=== PATIENT | male | born 1945 | race African-American/Black ===

== ENCOUNTER 2017-08-30 19:25 | Emergency (ER) | payer MEDICARE, MEDICAID ==
[~2017-08-30] VITALS: Ht 190.5 cm; Wt 88.2 kg
[~2017-08-30 19:25] MED LIST: AMLODIPINE5 MG PO; BACTRIM DS1 TAB PO; CIPRO500 MG OR; DIPHENHYDRAM50 M2 PO; ROBITUSS12 OR; TYLENOL # 31 TA1 PO
[2017-08-30] MEDS ORDERED: PROSTATE MED (19:36)
[2017-08-30 20:47] LABS: HEMATOCRIT 43.5 % (39.0-50.0); HEMOGLOBIN 14.7 g/dl (14.0-18.0); IMMATURE GRANULOCYTES 0.2 % (0.0-1.0); MEAN CELL VOLUME 91.6 fL CALC (80.0-100.0); MEAN CORPUSCULAR HGB 30.9 pG CALC (26.0-32.0); MEAN CORPUSCULAR HGB CONC 33.8 g/L CALC (32.0-36.0); NEUT# 2.83 thou/uL (1.82-7.42); RED BLOOD COUNT 4.75 mill/uL (4.70-6.10); RED CELL DISTRI WIDTH 12.6 % (11.5-15.5)
[2017-08-30 20:48] LABS: URINE BILIRUBIN - DIPSTICK NEGATIVE (NEGATIVE); URINE BLOOD DIPSTICK LARGE (NEGATIVE); URINE CLARITY CLEAR; URINE COLOR YELLOW; URINE GLUCOSE - DIPSTICK NEGATIVE (NEGATIVE); URINE KETONE NEGATIVE (NEGATIVE); URINE LEUK ESTERASE NEGATIVE (NEGATIVE); URINE NITRITE - DIPSTICK NEGATIVE (Negative); URINE PROTEIN - DIPSTICK NEGATIVE (NEG-TRACE); URINE SPECIFIC GRAVITY <=1.005; URINE UROBILINOGEN - DIPSTICK 0.2 E.U./dL (0.2)
[2017-08-30 20:55] LABS: ALKALINE PHOSPHATASE 64 u/l (38-126); ANION GAP 14 (6-22 (CALC)); BILIRUBIN, TOTAL 0.6 mg/dL (0.0-1.4); BUN 13 mg/dL (8-23); BUN/CREATININE RATIO 12 (12-20 (CALC)); CALCIUM 9.2 mg/dL (8.4-10.2); CARBON DIOXIDE 22 mmol/l (22-30); CHLORIDE 104 mmol/l (95-108); CREATININE 1.1 mg/dL (0.7-1.3); GFR > 60 ML/MIN (>=60 (CALC)); GFR FOR AFR.AMER. > 60 ML/MIN (>=60 (CALC)); GLUCOSE 142 mg/dL (82-115); POTASSIUM 4.1 mmol/l (3.5-5.1); SGOT/AST 20 u/l (19-48); SGPT/ALT 31 u/l (11-66); SODIUM 136 mmol/l (137-146)
[2017-08-30 20:58] LABS: URINE WBC 0-2 WBC/hpf (0-5)
[2017-08-30] MEDS ORDERED: TAMSULOSIN0.4 MG PO (22:04)
[2017-08-30 22:20] VITALS: BP 134/77
== END 2017-08-30 22:31 | disposition home or self-care (01) ==
LOC: ED 19:25
PROVIDERS: Emergency Medicine
PROC: 0T9B70Z Drainage of Bladder with Drainage Device, Via Natural or Artificial Opening (ICD-10-PCS; principal; 2017-08-30)
DX: N40.1 Benign prostatic hyperplasia with lower urinary tract symptoms (principal); R33.8 Other retention of urine; I10 Essential (primary) hypertension; Z21 Asymptomatic human immunodeficiency virus [HIV] infection status
CPT/HCPCS: Q9967

== ENCOUNTER 2018-03-25 12:54 | Emergency (ER) | payer MEDICARE, MEDICAID ==
[~2018-03-25] VITALS: Ht 190.5 cm; Wt 85.6 kg
[~2018-03-25 12:54] MED LIST changes: +PROSTATE MED; +TAMSULOSIN0.4 MG PO
[2018-03-25] MEDS ORDERED: PENICILLN VK500 MG PO (13:25)
[2018-03-25 13:30] VITALS: BP 127/81
[2018-03-25] MEDS ORDERED: FINASTERIDE5 MG PO (13:34)
[2018-03-25] MEDS ORDERED: TAMSULOSIN HCL0.4 MG PO (13:34)
[2018-03-25] MEDS ORDERED: VASOTEC5 MG PO (13:35)
== END 2018-03-25 13:30 | disposition home or self-care (01) ==
LOC: ED 12:54
DX: K08.89 Other specified disorders of teeth and supporting structures (principal); R68.84 Jaw pain; R50.9 Fever, unspecified

== ENCOUNTER 2018-03-26 17:37 | Observation (INO) | payer MEDICARE, MEDICAID ==
[~2018-03-26] VITALS: Ht 190.5 cm; Wt 83.4 kg
[~2018-03-26 17:37] MED LIST changes: +FINASTERIDE5 MG PO; +PENICILLN VK500 MG PO; +TAMSULOSIN HCL0.4 MG PO; +VASOTEC5 MG PO
[2018-03-26 18:23] LABS: HEMATOCRIT 46.9 % (39.0-50.0); HEMOGLOBIN 15.6 g/dl (14.0-18.0); IMMATURE GRANULOCYTES 0.3 % (0.0-1.0); MEAN CELL VOLUME 91.1 fL CALC (80.0-100.0); MEAN CORPUSCULAR HGB 30.3 pG CALC (26.0-32.0); MEAN CORPUSCULAR HGB CONC 33.3 g/L CALC (32.0-36.0); NEUT# 3.53 thou/uL (1.82-7.42); RED BLOOD COUNT 5.15 mill/uL (4.70-6.10); RED CELL DISTRI WIDTH 12.7 % (11.5-15.5)
[2018-03-26 18:54] LABS: ALBUMIN 4.2 g/dL (3.2-5.0); ALKALINE PHOSPHATASE 49 u/l (38-126); ANION GAP 17 (6-22 (CALC)); BILIRUBIN, TOTAL 0.7 mg/dL (0.0-1.4); BUN 14 mg/dL (8-23); BUN/CREATININE RATIO 12 (12-20 (CALC)); CARBON DIOXIDE 25 mmol/l (22-30); CHLORIDE 97 mmol/l (95-108); CREATININE 1.2 mg/dL (0.7-1.3); GFR 60 ML/MIN (>=60 (CALC)); GFR FOR AFR.AMER. > 60 ML/MIN (>=60 (CALC)); LIPASE 270 u/l (23-300); POTASSIUM 3.9 mmol/l (3.5-5.1); SGOT/AST 27 u/l (19-48); SGPT/ALT 33 u/l (11-66); SODIUM 135 mmol/l (137-146); TOTAL PROTEIN 8.1 g/dL (6.3-8.2)
[2018-03-26 19:14] LABS: URINE BILIRUBIN - DIPSTICK NEGATIVE (NEGATIVE); URINE BLOOD DIPSTICK TRACE-INTACT (NEGATIVE); URINE CLARITY CLEAR; URINE COLOR YELLOW; URINE GLUCOSE - DIPSTICK NEGATIVE (NEGATIVE); URINE KETONE NEGATIVE (NEGATIVE); URINE LEUK ESTERASE NEGATIVE (NEGATIVE); URINE NITRITE - DIPSTICK NEGATIVE (Negative); URINE PH 5.5 (4.5-8.0); URINE PROTEIN - DIPSTICK NEGATIVE (NEG-TRACE); URINE SPECIFIC GRAVITY <=1.005; URINE UROBILINOGEN - DIPSTICK 0.2 E.U./dL (0.2)
[2018-03-26 19:55] VITALS: BP 134/78
[2018-03-26 21:55] VITALS: BP 134/78
[2018-03-27 04:30] VITALS: BP 153/87
[2018-03-27 04:48] LABS: HEMATOCRIT 47.5 % (39.0-50.0); HEMOGLOBIN 15.5 g/dl (14.0-18.0); IMMATURE GRANULOCYTES 0.2 % (0.0-1.0); MEAN CELL VOLUME 91.9 fL CALC (80.0-100.0); MEAN CORPUSCULAR HGB CONC 32.6 g/L CALC (32.0-36.0); NEUT# 3.15 thou/uL (1.82-7.42); RED BLOOD COUNT 5.17 mill/uL (4.70-6.10); RED CELL DISTRI WIDTH 12.7 % (11.5-15.5)
[2018-03-27 05:12] LABS: ANION GAP 16 (6-22 (CALC)); BUN 13 mg/dL (8-23); BUN/CREATININE RATIO 12 (12-20 (CALC)); CARBON DIOXIDE 24 mmol/l (22-30); CHLORIDE 105 mmol/l (95-108); GFR > 60 ML/MIN (>=60 (CALC)); GFR FOR AFR.AMER. > 60 ML/MIN (>=60 (CALC)); SODIUM 140 mmol/l (137-146)
[2018-03-27 08:21] VITALS: BP 140/81
[2018-03-27 14:59] VITALS: BP 141/82
[2018-03-27 19:10] VITALS: BP 125/73
[2018-03-28 04:05] VITALS: BP 152/84
[2018-03-28 05:20] LABS: BASO% 1 % (0-3); EOS% 1 % (0-8); HEMATOCRIT 41.9 % (39.0-50.0); HEMOGLOBIN 13.8 g/dl (14.0-18.0); IMMATURE GRANULOCYTES 0.4 % (0.0-1.0); LYMPH% 37 % (15-41); MEAN CELL VOLUME 90.7 fL CALC (80.0-100.0); MEAN CORPUSCULAR HGB 29.9 pG CALC (26.0-32.0); MEAN CORPUSCULAR HGB CONC 32.9 g/L CALC (32.0-36.0); MONO% 13 % (2-13); NEUT# 2.56 thou/uL (1.82-7.42); PLATELET COUNT 153 thou/uL (130-400); RED BLOOD COUNT 4.62 mill/uL (4.70-6.10); RED CELL DISTRI WIDTH 12.8 % (11.5-15.5)
[2018-03-28 05:34] LABS: ANION GAP 14 (6-22 (CALC)); BUN 11 mg/dL (8-23); BUN/CREATININE RATIO 11 (12-20 (CALC)); CARBON DIOXIDE 25 mmol/l (22-30); CHLORIDE 103 mmol/l (95-108); GFR > 60 ML/MIN (>=60 (CALC)); GFR FOR AFR.AMER. > 60 ML/MIN (>=60 (CALC)); POTASSIUM 3.9 mmol/l (3.5-5.1); SODIUM 138 mmol/l (137-146)
[2018-03-28 05:44] LABS: MANUAL DIFFERENTIAL YES; NEUT% 100 % (42-76)
[2018-03-28 08:04] VITALS: BP 132/85
[2018-03-28 09:10] VITALS: BP 132/85
[2018-03-28] MEDS ORDERED: AUGMENTIN875TAB PO (11:05)
== END 2018-03-28 15:17 | disposition home or self-care (01) ==
LOC: ED 17:37 → ED-I 21:08 → ED 21:19 → MS2 21:20
PROVIDERS: Family Medicine; ADMIT Internal Medicine; ATTEND Internal Medicine
DX: L03.211 Cellulitis of face (principal); K04.7 Periapical abscess without sinus; I10 Essential (primary) hypertension; N40.0 Benign prostatic hyperplasia without lower urinary tract symptoms; Z85.46 Personal history of malignant neoplasm of prostate
CPT/HCPCS: Q9967

== ENCOUNTER 2022-02-25 07:28 | Day surgery (SDC) | payer MEDICARE, MEDICAID ==
[~2022-02-25] VITALS: Ht 188 cm; Wt 87.1 kg
[~2022-02-25 07:28] MED LIST changes: +AUGMENTIN875TAB PO; +BP; +ENALAPRIL5 MG PO; +MUSCLE RELAXER; +PAIN MED; +PROSTATE
[2022-02-25] MEDS ORDERED: PERCOCET 5/325M1 TAB PO (09:40)
[2022-02-25 11:51] VITALS: BP 145/94
[2022-02-25] MEDS ORDERED: PERCOCET 5/321 COMBO PO (12:39)
== END 2022-02-25 11:07 | disposition home or self-care (01) ==
LOC: ORM 07:28
PROVIDERS: ATTEND Surgery
PROC: 0WQF0ZZ Repair Abdominal Wall, Open Approach (ICD-10-PCS; principal; 2022-02-25)
DX: K43.9 Ventral hernia without obstruction or gangrene (principal); I10 Essential (primary) hypertension
CPT/HCPCS: J0131

== ENCOUNTER 2022-05-21 09:09 | Emergency (ER) | payer MEDICARE, MEDICAID ==
[2022-05-21] VITALS (12 sets, daily range): BP systolic 109–150; BP diastolic 73–99
[~2022-05-21] VITALS: Ht 188 cm; Wt 86.3 kg
[~2022-05-21 09:09] MED LIST changes: +PERCOCET 5/321 COMBO PO; +PERCOCET 5/325M1 TAB PO
[2022-05-21] MEDS ORDERED: FINASTERIDE5 MG PO (09:24)
[2022-05-21 09:45] LABS: HEMOGLOBIN 15.6 g/dl (14.0-18.0); IMMATURE GRANULOCYTES 0.3 % (0.0-5.0); MEAN CELL VOLUME 95.5 fL CALC (80.0-100.0); MEAN CORPUSCULAR HGB 30.7 pG CALC (26.0-32.0); MEAN CORPUSCULAR HGB CONC 32.2 g/dL CAL (32.0-36.0); NEUT# 5.97 thou/uL (1.82-7.42); RED BLOOD COUNT 5.08 mill/uL (4.70-6.10); RED CELL DISTRI WIDTH 12.7 % (11.5-15.5)
[2022-05-21 09:46] LABS: HEMATOCRIT 48.5 % (39.0-50.0)
[2022-05-21 10:05] LABS: ALBUMIN 4.2 g/dL (3.2-5.0); ALKALINE PHOSPHATASE 66 u/l (38-126); ANION GAP 12 (6-22 (CALC)); BILIRUBIN, TOTAL 0.5 mg/dL (0.0-1.4); BUN 9 mg/dL (8-23); BUN/CREATININE RATIO 7 (12-20 (CALC)); CARBON DIOXIDE 26 mmol/l (22-30); CHLORIDE 102 mmol/l (95-108); CREATININE 1.2 mg/dL (0.7-1.3); GFR FOR AFR.AMER. > 60 ML/MIN (>=60 (CALC)); GFR OTHER RACES 59 ML/MIN (>=60 (CALC)); SGOT/AST 22 u/l (19-48); SODIUM 136 mmol/l (137-146); TOTAL PROTEIN 8.2 g/dL (6.3-8.2)
[2022-05-21] MEDS ORDERED: BACTRIM DS1 TAB PO (12:20)
[2022-05-21] MEDS ORDERED: OMNICEF300 MG PO (12:20)
== END 2022-05-21 12:45 | disposition home or self-care (01) ==
LOC: ED 09:09
PROVIDERS: Family Medicine
DX: N49.2 Inflammatory disorders of scrotum (principal); I10 Essential (primary) hypertension
CPT/HCPCS: Q9967

== ENCOUNTER 2023-02-11 06:34 | Day surgery (SDC) | payer MEDICARE, MEDICAID ==
[~2023-02-11 06:34] MED LIST changes: +ALEVE220 M1 PO; +BUDESONID1 IN; +OMNICEF300 MG PO
[2023-02-11 08:22] VITALS: BP 135/85
== END 2023-02-11 08:35 | disposition home or self-care (01) ==
LOC: ORM 06:34
PROVIDERS: ATTEND Urology
PROC: 0VB03ZX Excision of Prostate, Percutaneous Approach, Diagnostic (ICD-10-PCS; principal; 2023-02-11)
DX: R97.20 Elevated prostate specific antigen [PSA] (principal); N40.1 Benign prostatic hyperplasia with lower urinary tract symptoms; N13.8 Other obstructive and reflux uropathy; R33.8 Other retention of urine; J44.9 Chronic obstructive pulmonary disease, unspecified; I10 Essential (primary) hypertension; Z21 Asymptomatic human immunodeficiency virus [HIV] infection status
CPT/HCPCS: J1956

== ENCOUNTER 2023-05-23 13:00 | Emergency (ER) | payer MEDICARE, MEDICAID ==
[~2023-05-23] VITALS: Ht 188 cm; Wt 81.6 kg
[2023-05-23 13:06] VITALS: BP 135/63
[2023-05-23 13:18] VITALS: BP 120/68
[2023-05-23 13:45] VITALS: BP 114/70
[2023-05-23 13:46] LABS: BASO% 0.2 % (0-3); EOS% 1.8 % (0-8); IMMATURE GRANULOCYTES 0.4 % (0.0-5.0); LYMPH% 28.7 % (15-41); MEAN CORPUSCULAR HGB 32.1 pG CALC (26.0-32.0); MEAN CORPUSCULAR HGB CONC 26.3 g/dL CAL (32.0-36.0); MONO% 12.2 % (2-13); NEUT# 4.79 thou/uL (1.82-7.42); NEUT% 56.7 % (42-76); RED BLOOD COUNT 4.67 mill/uL (4.70-6.10); RED CELL DISTRI WIDTH 13.1 % (11.5-15.5)
[2023-05-23 13:47] LABS: HEMATOCRIT 57.1 % (39.0-50.0); MEAN CELL VOLUME 122.3 fL CALC (80.0-100.0)
[2023-05-23 13:58] LABS: ALBUMIN 4.1 g/dL (3.2-5.0); BILIRUBIN, TOTAL 0.6 mg/dL (0.2-1.3); CREATININE 1.6 mg/dL (0.7-1.3); POTASSIUM 4.4 mmol/l (3.5-5.1); TOTAL PROTEIN 8.3 g/dL (6.3-8.2)
[2023-05-23 14:00] VITALS: BP 114/74
[2023-05-23 14:15] VITALS: BP 114/71
[2023-05-23] MEDS ORDERED: DOXY-CAPS100 MG PO (15:43)
[2023-05-23] MEDS ORDERED: OMNICEF300 M1 PO (15:43)
[2023-05-23 16:03] VITALS: BP 114/71
== END 2023-05-23 16:04 | disposition home or self-care (01) ==
LOC: ED 13:00
PROVIDERS: Family Medicine
PROC: 0H9AXZZ Drainage of Inguinal Skin, External Approach (ICD-10-PCS; principal; 2023-05-23)
DX: L02.214 Cutaneous abscess of groin (principal); I10 Essential (primary) hypertension
CPT/HCPCS: Q9967

== ENCOUNTER 2023-05-24 07:48 | Observation (INO) | payer MEDICARE, MEDICAID ==
[~2023-05-24] VITALS: Ht 185.4 cm; Wt 83.8 kg
[2023-05-24] VITALS (12 sets, daily range): BP systolic 99–137; BP diastolic 59–84
[~2023-05-24 07:48] MED LIST changes: +DOXY-CAPS100 MG PO; +OMNICEF300 M1 PO
[2023-05-24 09:09] LABS: BASO% 0.2 % (0-3); EOS% 1.7 % (0-8); HEMOGLOBIN 14.5 g/dl (14.0-18.0); IMMATURE GRANULOCYTES 0.6 % (0.0-5.0); LYMPH% 23.4 % (15-41); MEAN CORPUSCULAR HGB 29.9 pG CALC (26.0-32.0); NEUT# 5.8 thou/uL (1.82-7.42); NEUT% 65.1 % (42-76); RED BLOOD COUNT 4.85 mill/uL (4.70-6.10)
[2023-05-24 09:12] LABS: HEMATOCRIT 45.3 % (39.0-50.0); MEAN CELL VOLUME 93.4 fL CALC (80.0-100.0)
[2023-05-24 09:25] LABS: ALBUMIN 3.9 g/dL (3.2-5.0); BILIRUBIN, TOTAL 0.5 mg/dL (0.2-1.3); CREATININE 1.5 mg/dL (0.7-1.3); POTASSIUM 3.9 mmol/l (3.5-5.1); TOTAL PROTEIN 8.1 g/dL (6.3-8.2)
[2023-05-24 11:24] LABS: URINE COLOR YELLOW
[2023-05-24 11:25] LABS: URINE BILIRUBIN - DIPSTICK NEGATIVE (NEGATIVE); URINE BLOOD DIPSTICK NEGATIVE (NEGATIVE); URINE GLUCOSE - DIPSTICK NEGATIVE (NEGATIVE); URINE KETONE Negative (NEGATIVE); URINE LEUK ESTERASE NEGATIVE (NEGATIVE); URINE NITRITE - DIPSTICK NEGATIVE (Negative); URINE PH 7.5 (4.5-8.0); URINE PROTEIN - DIPSTICK Trace mg/dL (NEG-TRACE); URINE SPECIFIC GRAVITY 1.015
[2023-05-25 04:30] VITALS: BP 122/72
[2023-05-25 06:19] VITALS: BP 110/74
[2023-05-25 06:51] VITALS: BP 110/74
[2023-05-25 09:09] LABS: HEMATOCRIT 41.9 % (39.0-50.0); HEMOGLOBIN 13.3 g/dl (14.0-18.0); MEAN CELL VOLUME 93.9 fL CALC (80.0-100.0); MEAN CORPUSCULAR HGB 29.8 pG CALC (26.0-32.0); MEAN CORPUSCULAR HGB CONC 31.7 g/dL CAL (32.0-36.0); RED BLOOD COUNT 4.46 mill/uL (4.70-6.10); RED CELL DISTRI WIDTH 12.9 % (11.5-15.5)
[2023-05-25 09:27] LABS: ALKALINE PHOSPHATASE 44 u/l (38-126); ANION GAP 10 (6-22 (CALC)); BILIRUBIN, TOTAL 0.6 mg/dL (0.2-1.3); BUN 10 mg/dL (8-23); BUN/CREATININE RATIO 10 (12-20 (CALC)); CARBON DIOXIDE 21 mmol/l (22-30); CHLORIDE 108 mmol/l (95-108); CREATININE 1.1 mg/dL (0.7-1.3); GFR FOR AFR.AMER. > 60 ML/MIN (>=60 (CALC)); GFR OTHER RACES > 60 ML/MIN (>=60 (CALC)); MAGNESIUM 2.1 mg/dL (1.6-2.3); POTASSIUM 4.5 mmol/l (3.5-5.1); SGOT/AST 25 u/l (19-48); SODIUM 134 mmol/l (137-146); TOTAL PROTEIN 6.5 g/dL (6.3-8.2)
[2023-05-25 09:29] LABS: ALBUMIN 3.1 g/dL (3.2-5.0)
[2023-05-25 15:38] VITALS: BP 123/70
[2023-05-25 19:25] VITALS: BP 131/80
[2023-05-26 04:25] VITALS: BP 124/79
[2023-05-26 06:39] VITALS: BP 132/91
== END 2023-05-26 12:30 ==
LOC: ED 07:48 → ED-I 10:05 → ED 10:17 → MS2 10:18
PROVIDERS: Family Medicine; ADMIT Internal Medicine; ATTEND Internal Medicine
DX: L02.214 Cutaneous abscess of groin (principal); B95.61 Methicillin susceptible Staphylococcus aureus infection as the cause of diseases classified elsewhere; I10 Essential (primary) hypertension; N40.0 Benign prostatic hyperplasia without lower urinary tract symptoms; Z20.822 Contact with and (suspected) exposure to COVID-19
CPT/HCPCS: J0690; J0692; J1650; J3370